=== PATIENT | male | born 1950 | race African-American/Black ===

== ENCOUNTER → 2018-12-20 | Outpatient (CLI) | payer MEDICARE, OTHER ==
[2015-04-21 15:26] VITALS: BP 187/117
[~2018-12-20] MED LIST: DIPH25CA58 PO; FAMO20TA5 PO; METF500T16 PO; METH2TAB PO; NAPR-514 PO; TRAM50TA PO; lisinopril PO
--- NOTE | 2018-12-21 14:24 | KCIC ---
INDICATION: Follow-up of thrombus COMPARISON: February 06, 2016 TECHNIQUE: Grayscale, color and doppler ultrasound images were obtained of the right lower extremity venous vasculature. RIGHT: Dictated superficial femoral vein with one of the superficial femoral veins having thrombus within. There is also thrombus seen within the popliteal vein and peroneal vein. IMPRESSION: * Repeat demonstration of right leg deep vein thrombosis with the overall distribution comparable to prior. Electronically signed by: Gerson Mohan MD (12/21/2018 2:21 PM) [place] [id number]
== END | disposition home or self-care (01) ==
LOC: KCIC US 14:56
PROVIDERS: ATTEND Family Medicine
DX: I82.431 Acute embolism and thrombosis of right popliteal vein (principal); I82.411 Acute embolism and thrombosis of right femoral vein; I82.491 Acute embolism and thrombosis of other specified deep vein of right lower extremity
CPT/HCPCS: 93971

== ENCOUNTER → 2019-02-06 | Outpatient (CLI) | payer OTHER ==
[2015-04-21 15:26] VITALS: BP 187/117
[~2019-02-06] MED LIST changes: +REGADENOSON 0.4 MG/5 ML DISP.SYRIN. IV ONE
--- NOTE | 2019-02-06 12:04 | RAD ---
MR#: [id number] Date of Study: 02/06/2019 Ordering Physician: AKIKO NATH Referring Physician: FAROOQ CONKLIN Tech: RT Vanessa (Monica) (N) APPROVED REPORT Test Type: Pharmacological Stress Nurse/Tech: Velma Ibrahim R.N. Test Indications: chest pain Cardiac History: htn, dm, ex smoker Medications: see ehr Medical History: see ehr Resting ECG: sr Resting Heart Rate: 80 bpm Resting Blood Pressure: 141/86mmHg Pretest Chest Pain: No chest pain Nurse/Tech Notes lungs cta, heart tones regular Consent: The procedure was explained to the patient in lay terms. Informed consent was witnessed. Osvaldo eout was entered into duuin. History and Stress Test performed by HADLEY Hogue Pharm. Details Pharmacologic stress testing was performed using 0.4mg per 5ml of regadenoson given intravenously ove r 7-10 seconds. Stress Symptoms No chest pain or symptoms. POST EXERCISE Reason for Termination: Infusion complete Target HR: No Max HR: 102 bpm Max Blood Pressure: 141/86mmHg Chest Pain: No. Arrhythmia: No. ST Change: No. INTERPRETATION Stress EKG Conclusion: The resting EKG shows a sinus rhythm and slight ST segment changes. The stress EKG shows no significant changes from baseline. No EKG evidence of stressed induced ischemia. Imaging Protocol IMAGE PROTOCOL: Rest Tc-99m/stress Tc-99m 1 day Rest: Stress: Viability: Radiopharm.Tc99m RuiosnwubSv99w Sestamibi Dose9.3mCi 31mCi Duration 15min. 10min. Img Date 02/06/2019 02/06/2019 Inj-Img Hwqp07lza. 60min. Rest Admin Site:IV - Right AntecubitalAdministrator:HADLEY Hogue Stress Admin Site: IV - Right AntecubitalAdministrator: HADLEY Hogue STRESS DATA End Diast. Vol.59.0mlAv. Heart Rate77.0bpm End Syst. Vol.16.0mlCO Index BSA0.0L/min Myocardial Xhxs543.0gEject. Morjznlx66.0% Stress Rates Pk. Fill Rate3.10EDV/secLVtime Pk. Fill 232.34msec Pk. Empty Rate4.17ESV/secLVtime Pk. Wngak741.03msec / Pk. Fill1.12EDV/sec Stress Scores Regional WT1.00Summed WT3.00 Regional WM0.00Summed WM0.00 LV Perfusion The stress scans showed no significant defects. The rest scans showed no significant defects. Nuclear imaging shows no reversible ischemia or infarct. Wall Motion Left ventricular systolic function is normal with an ejection fraction of greater than 70%. LV Perf. Quant 17 Seg. SSS0.00 17 Seg. SRS0.00 17 Seg. SDS0.00 Stress Defect Extent (% LAD)0.00Rest Defect Extent (% LAD)0.00Rev. Defect Extent (% LAD)0.00 Stress Defect Extent (% LCX) 0.00Rest Defect Extent (% LCX)0.00Rev. Defect Extent (% LCX)0.00 Stress Defect Extent (% RCA)0.00Rest Defect Extent (% RCA)0.00Rev. Defect Extent (% RCA)0.00 Stress Defect Extent (% SHANNA)0.00Rest Defect Extent (% SHANNA)0.00Rev. Defect Extent (% SHANNA)0.00 Conclusion 1. No EKG evidence of stressed induced ischemia. 2. Nuclear imaging shows no evidence of reversible ischemia or infarct. 3. Left ventricular systolic function is normal with an ejection fraction of greater than 70%. 4. Low risk Lexiscan nuclear stress test. Signed by : Francisco J Vitale MD Electronically Approved : 02/06/2019 12:04:15
== END | disposition home or self-care (01) ==
LOC: NM 08:28
PROVIDERS: ATTEND Internal Medicine Cardiovascular Disease
DX: R07.9 Chest pain, unspecified (principal); I10 Essential (primary) hypertension; E11.9 Type 2 diabetes mellitus without complications; Z79.01 Long term (current) use of anticoagulants; Z87.891 Personal history of nicotine dependence; Z88.8 Allergy status to other drugs, medicaments and biological substances
CPT/HCPCS: 78452; 93017; A9500; J2785

== ENCOUNTER 2019-02-10 07:49 | Outpatient (CLI) | payer OTHER ==
[~2019-02-10] VITALS: Ht 175.3 cm; Wt 77.1 kg
[2019-02-10] VITALS (11 sets, daily range): BP systolic 100–140; BP diastolic 71–89
[~2019-02-10 07:49] MED LIST changes: -REGADENOSON 0.4 MG/5 ML DISP.SYRIN. IV ONE
[2019-02-10] MEDS ORDERED: ASPI-630 PO (08:11)
[2019-02-10] MEDS ORDERED: RIVA20TA2 PO (08:11)
[2019-02-10] MEDS ORDERED: METO50TA4 PO (08:15)
[2019-02-10] MEDS ORDERED: DILT240C66 PO (08:15)
[2019-02-10] MEDS ORDERED: INSU100V6 SQ (08:15)
[2019-02-10] MEDS ORDERED: HYDR12.575 PO (08:15)
[2019-02-10] MEDS ORDERED: AMLO5TAB10 PO (08:15)
[2019-02-10 08:26] LABS: HEMATOCRIT 40.8 % (39.0-53.0); HEMOGLOBIN 13.7 g/dL (13.0-17.5); RED BLOOD COUNT 4.35 x10^6/uL (4.30-5.70); RED CELL DISTRIBUTION WIDTH 13.7 % (11.5-14.5); WHITE BLOOD COUNT 5.6 x10^3/uL (4.0-11.0)
[2019-02-10 08:29] LABS: CALCIUM 9.3 mg/dL (8.5-10.1); CREATININE 1.1 mg/dL (0.7-1.3); POTASSIUM 3.6 mmol/L (3.5-5.1)
[2019-02-10 08:36] LABS: PROTHROMBIN TIME PATIENT 13.3 SEC (11.7-14.0)
[2019-02-10] MEDS ORDERED: IODIXANOL 320 MG/ML 100 ML VIAL. ONE (10:00)
[2019-02-10] MEDS ORDERED: LIDOCAINE 1% Multi-Dose 20 ML VIAL. ONE (10:00)
[2019-02-10] MEDS ORDERED: MIDAZOLAM HCL/PF 5 MG/5 ML VIAL. ONE (10:02)
[2019-02-10] MEDS ORDERED: fentaNYL PF VIAL 250 MCG/5 ML VIAL ONE (10:02)
[2019-02-10] MEDS ORDERED: HEPARIN for IV BOLUS 10,000 UNIT/10 ML VIAL. ONE (10:03)
[2019-02-10] MEDS ORDERED: fentaNYL PF VIAL 250 MCG/5 ML VIAL IV ONE (10:30)
[2019-02-10] MEDS ORDERED: MIDAZOLAM HCL/PF 5 MG/5 ML VIAL. IV ONE (10:30)
[2019-02-10] MEDS ORDERED: LIDOCAINE 1% Multi-Dose 20 ML VIAL. INJ ONE (10:30)
[2019-02-10] MEDS ORDERED: IODIXANOL 320 MG/ML 100 ML VIAL. IART ONE (10:30)
[2019-02-10] MEDS ORDERED: CONTRAST GIVEN. MC PRN (10:45)
--- NOTE | 2019-02-10 11:22 | CARD ---
MR#: [id number] Date of Study: 02/10/2019 Ordering Physician: AKIKO NATH, Referring Physician: AKIKO NATH Tech: AKASHED GUARDADO APPROVED REPORT Patient StatusOUT-PATIENT Bank Messenger: AKASH GUARDADO Procedure(s) performed: Aortogram with bilateral lower extremity runoff FL TIME: 2.0 MINS DOSE: 39 GY/CM2 CONTRAST: 60 ML MODERATE SEDATION: 48 MINS INDICATION FOR PROCEDURE The indication(s) include : Peripheral artery disease with claudication and abnormal Quantaflo. PROCEDURE NARRATIVE After explaining the risks, benefits and alternative options, informed consent was obtained from mikayla ent. Patient was brought to the cardiac Product Safety Administrator and his left groin was prepped and draped in the usu al fashion. 20 mL of 2% lidocaine was infiltrated into the skin and subcutaneous tissues for local an esthesia. Arterial access was obtained the left common femoral artery and a 5 Zimbabwean sheath was inser leissa. 5 Zimbabwean pigtail catheter was used to perform aortogram with bilateral lower extremity runoff. A 5 Zimbabwean crossover catheter was positioned in the right common iliac artery and selective iliac nell ography was performed. The patient tolerated the procedure well. Hemostasis was achieved using mynx c losure device. There were no immediate complications. FINDINGS 1. No significant stenosis involving the distal descending aorta 2. No significant stenosis involving bilateral common and external iliac arteries 3. No significant stenosis involving bilateral common and superficial femoral arteries 4. No significant stenosis involving bilateral popliteal arteries 5. There is three-vessel runoff below the knee left lower extremity. The right lower treatment he tom wed two vessel runoff. The right posterior tibial artery was not ready well-visualized but appeared t o be occluded proximally. Conclusion No significant peripheral artery stenosis needing intervention Signed by : Akiko Nath, Electronically Approved : 02/10/2019 11:22:24
[2019-02-10] MEDS ORDERED: IV 1/2 NORMAL SALINE 1,000 ML IV SCH (11:42)
--- NOTE | 2019-02-10 11:42 | PDOC ---
MODERATE SEDATION ASSESSMENT RISKS/ALTERNATIVES Risks/Alternatives Risks and alternatives of this type of sedation and procedure discussed with: RISK/ALTERNATIVES: Patient H & P ON CHART H & P H & P on chart and reviewed for co-morbid conditions and appropriate labs. H&P ON CHART: Yes STATUS PREG STATUS ASSESSED: N/A MEDS/ALLERGIES REVIEWED Meds/Allergies Reviewed Medications and Allergies including time and route of recently administered narcotics and sedatives. MEDS/ALLERGIES REVIEWED: Yes ASA RATING ASA RATING: II AIRWAY ASSESSMENT Airway Assessment Airway patency, oral function limitations, presence of caps, crowns, dentures, partials, and ability to extend neck assessed. AIRWAY ASSESSMENT: Yes MALLAMPATI SCORE MALLAMPATI SCORE: II PRE-SEDATION ASSESSMENT PRE-SEDATION ASSESSMENT: Yes AKIKO NATH MD Feb 10, 2019 11:42
--- NOTE | 2019-02-10 14:57 | NUR ---
Discharge Note: [facility] Discharge instructions and discharge home medications reviewed with Patient and Spouse and a copy given. All questions have been answered and understanding verbalized. Patient ate breakfast and lunch with no issues. The following instructions and handouts were given: Angigraphy, Groin site care, moderate sedation and diabetic neuropathy. Discontinued lines and drains: right forearm, dressing clean dry intact. Patient discharged to home with and sister in law via wheelchair to private vehicle.
== END 2019-02-10 14:45 | disposition home or self-care (01) ==
LOC: CCL 07:49
PROVIDERS: ATTEND Internal Medicine Cardiovascular Disease
DX: I70.213 Atherosclerosis of native arteries of extremities with intermittent claudication, bilateral legs (principal); Z79.899 Other long term (current) drug therapy
CPT/HCPCS: 36245; 36415; 75716; 80048; 85027; 85610; C1713; C1769; C1892; J1644; J2250; J3010; Q9967; 75630; 99152; 99153; G0269

== ENCOUNTER → 2019-03-21 | Outpatient (CLI) | payer OTHER ==
[2019-02-10 13:15] VITALS: BP 121/85
[~2019-03-21] MED LIST changes: +AMLO5TAB10 PO; +ASPI-630 PO; +DILT240C66 PO; +HYDR12.575 PO; +INSU100V6 SQ; +METO50TA4 PO; +RIVA20TA2 PO
--- NOTE | 2019-03-21 10:53 | RAD ---
MR#: [id number] Date of Study: 03/21/2019 Ordering Physician: AKIKO NATH, Referring Physician: AKIKO ANTH, Tech: Nicola Lerner MBA, RDMS, RVT, RDCS, RTR APPROVED REPORT Patient Location : OUT-PATIENT Indications VENOUS INSUFFICIENCY Greater Saphenous Veins (GSV) Significant venous relux noted in the RIGHT GSV at the following levels : Superficial Femoral Junctio n, Proximal Thigh, Mid Thigh, Distal Thigh, Proximal Calf, Mid Calf, Distal Calf Significant venous relux noted in the LEFT GSV at the following levels : Superficial Femoral Junction , Proximal Thigh, Mid Thigh, Distal Thigh, Proximal Calf, Mid Calf, Distal Calf Lesser Saphenous Veins (LSV) Significant venous reflux is noted in the Bilateral LSV. Findings Grayscale images of the bilateral saphenofemoral junctions are grossly unremarkable. The right great saphenous vein measures a maximum of 3.7 mm and has a reflux time of 2.8 seconds. The left great saphenous vein measures 6 mm and has a maximum reflux time of 3.5 seconds. Bilateral lesser saphenous veins do not show any evidence of reflux. Critical Notification Critical Value: No <Conclusion> 1. Significant reflux as noted above in the bilateral greater saphenous veins Signed by : William Dumont, Electronically Approved : 03/21/2019 10:52:42
== END | disposition home or self-care (01) ==
LOC: US 09:54
PROVIDERS: ATTEND Internal Medicine Cardiovascular Disease
DX: I87.2 Venous insufficiency (chronic) (peripheral) (principal)
CPT/HCPCS: 93970

== ENCOUNTER → 2019-04-14 | Outpatient (CLI) | payer OTHER ==
[2019-02-10 13:15] VITALS: BP 121/85
--- NOTE | 2019-04-14 10:41 | CARD ---
MR#: [id number] Date of Study: 04/14/2019 Ordering Physician: AKIKO NATH, Referring Physician: AKIKO NATH Tech: Randall Gomez [facility] APPROVED REPORT EXAM: Two-dimensional and M-mode echocardiogram with Doppler and color Doppler. Other Information Quality : GoodHR: 76bpm Rhythm : NSR INDICATION Hypertension/HCVD Chest Pain 2D DIMENSIONS Left Atrium(2D)3.2 (1.6-4.0cm)IVSd1.2 (0.7-1.1cm) Aortic Root(2D)3.1 (2.0-3.7cm)LVDd3.8 (3.9-5.9cm) PWd1.2 (0.7-1.1cm)LVDs2.8 (2.5-4.0cm) FS (%) 26.7 %SV33.1 ml LVEF(%)52.9 (>50%) Mitral Valve MV E Jaunqbfu10.1cm/sMV DECEL [id number] MV A Umyvvkvk59.0cm/sE/A Ratio0.8 MV A Ahvayvwj238uy Pulmonary Valve PV Peak Xsrfgbly44.1cm/s Tricuspid Valve TR P. Zuhxqfzz557co/sRAP [id number] TR Peak Gr.01daEkYQAT70thEr Pulmonary Vein S1 Kxdqzpby76.6cm/sD2 Fhludczw59.0cm/s PVa orfdplgs666odfc LEFT VENTRICLE The left ventricle is normal size. There is borderline to mild concentric left ventricular hypertroph y. The left ventricular systolic function is normal and the ejection fraction is within normal range. The Ejection Fraction is 60-65%. There is normal LV segmental wall motion. Transmitral Doppler flow pattern is Grade I-abnormal relaxation pattern. RIGHT VENTRICLE The right ventricle is normal size. There is normal right ventricular wall thickness. The right ventr icular systolic function is normal. ATRIA The left atrium size is normal. The right atrium size is normal. The interatrial septum is intact wit h no evidence for an atrial septal defect or patent foramen ovale as noted on 2-D or Doppler imaging. AORTIC VALVE The aortic valve is normal in structure and function. No aortic regurgitation is present. There is no aortic valvular stenosis. There is no aortic valvular vegetation. MITRAL VALVE The mitral valve is normal in structure and function. There is no evidence of mitral valve prolapse. There is no mitral valve stenosis. Doppler and Color-flow revealed mild mitral regurgitation. TRICUSPID VALVE The tricuspid valve is normal in structure and function. Doppler and Color Flow revealed mild tricusp id regurgitation with PAP of 33 mmHg. There is no tricuspid valve prolapse or vegetation. There is no tricuspid valve stenosis. PULMONIC VALVE Doppler and Color Flow revealed mild pulmonic valvular regurgitation. There is no pulmonic valvular s tenosis. GREAT VESSELS The aortic root is normal in size. The ascending aorta is normal in size. The IVC is normal in size a nd collapses >50% with inspiration. PERICARDIAL EFFUSION There is no pleural effusion. The pericardium appears normal. Critical Notification Critical Value: No <Conclusion> The left ventricular systolic function is normal and the ejection fraction is within normal range. Th e Ejection Fraction is 60-65%. There is normal LV segmental wall motion. Signed by : William Dumont, Electronically Approved : 04/14/2019 10:40:22
== END | disposition home or self-care (01) ==
LOC: ECHO 08:35
PROVIDERS: ATTEND Internal Medicine Cardiovascular Disease
DX: I08.1 Rheumatic disorders of both mitral and tricuspid valves (principal); I11.9 Hypertensive heart disease without heart failure
CPT/HCPCS: 93306

== ENCOUNTER → 2021-05-21 | Day surgery (SDC) | payer BC, OTHER ==
[~2021-05-21] VITALS: Ht 175.3 cm; Wt 84.0 kg
[~2021-05-21] MED LIST changes: +AMLO-186 PO; -AMLO5TAB10 PO; +CITA10TA5 PO; +CRESTOR5 MG PO; +DILT300T7 PO; +HYDROmorphone 2 MG/ML INJ. IVP PRN; +IV RINGERS,LACTATED 1000ML 1,000 ML IV SCH; +MORPHINE SULFATE 2 MG/ML INJ. IVP PRN; +PANT20TA2 PO; +PROCHLORPERAZINE 10 MG/2 ML VIAL. IVP PRN; +PROPOFOL 10 MG/ML (20ML) VIAL. IV ONE; +WARF-31 PO; +fentaNYL PF VIAL 100 MCG/2 ML VIAL IVP PRN
[2021-05-21 07:08] VITALS: BP 147/98
--- NOTE | 2021-05-21 07:42 | PDOC2 ---
CONSULT Date of Consult Date of Consult DATE: 05/21/21 TIME: 07:37 Reason for Consult Reason for Consult: CRC screening Identification/Chief Complaint Chief Complaint 70 yo Male seen in consultation for colorectal cancer screening. He has daily bowel movements without constipation or diarrhea. No melena and/or hematochezia is present. Weight and appetite are stable. Prior colonoscopy a decade ago did reveal colon polyps. He otherwise is without additional complaints. Past Medical History Cardiovascular: HTN GI: GERD Endocrine: Diabetes Past Surgical History Past Surgical History: Other (Leg stent/revascularization) Family History Family History: Alcohol Abuse, Diabetes, Heart Disease, Hypertension Social History Quit Current Medications Current Medications Current Medications Fentanyl Citrate (Fentanyl 2ml Vial) 25 mcg PRN Q5MIN PRN IVP MILD PAIN 1-3; Start 05/21/21 at 06:00; Stop 05/21/21 at 20:00 Fentanyl Citrate (Fentanyl 2ml Vial) 50 mcg PRN Q5MIN PRN IVP MODERATE PAIN 4- 6; Start 05/21/21 at 06:00; Stop 05/21/21 at 20:00 Morphine Sulfate (Morphine Sulfate) 1 mg PRN Q10MIN PRN IVP SEVERE PAIN 7-10; Start 05/21/21 at 06:00; Stop 05/21/21 at 20:00 Ringer's Solution 1,000 ml @ 30 mls/hr Q24H IV Last administered on 05/21/21at 07:16; Start 05/21/21 at 06:00; Stop 05/21/21 at 17:59 Hydromorphone HCl (Dilaudid) 0.5 mg PRN Q10MIN PRN IVP SEVERE PAIN 7-10, 2nd CHOICE; Start 05/21/21 at 06:00; Stop 05/21/21 at 20:00 Prochlorperazine Edisylate (Compazine) 5 mg PACU PRN PRN IVP NAUSEA, MRX1; Start 05/21/21 at 06:00; Stop 05/21/21 at 20:00 Fentanyl Citrate (Fentanyl 2ml Vial) 25 mcg PRN Q5MIN PRN IVP MILD PAIN 1-3; Start 05/21/21 at 06:00; Stop 05/22/21 at 05:59; Status UNV Fentanyl Citrate (Fentanyl 2ml Vial) 50 mcg PRN Q5MIN PRN IVP MODERATE PAIN 4- 6; Start 05/21/21 at 06:00; Stop 05/22/21 at 05:59; Status UNV Morphine Sulfate (Morphine Sulfate) 1 mg PRN Q10MIN PRN IVP SEVERE PAIN 7-10; Start 05/21/21 at 06:00; Stop 05/22/21 at 05:59; Status UNV Ringer's Solution 1,000 ml @ 30 mls/hr Q24H IV ; Start 05/21/21 at 06:00; Stop 05/21/21 at 17:59; Status UNV Hydromorphone HCl (Dilaudid) 0.5 mg PRN Q10MIN PRN IVP SEVERE PAIN 7-10, 2nd CHOICE; Start 05/21/21 at 06:00; Stop 05/22/21 at 05:59; Status UNV Prochlorperazine Edisylate (Compazine) 5 mg PACU PRN PRN IVP NAUSEA, MRX1; Start 05/21/21 at 06:00; Stop 05/22/21 at 05:59; Status UNV Propofol (Diprivan) 200 mg STK-MED ONCE IV ; Start 05/21/21 at 06:28; Stop 05/21/21 at 06:29; Status DC Active Scripts Active Reported Protonix (Pantoprazole Sodium) 20 Mg Tablet.dr 40 Mg PO DAILY Crestor (Rosuvastatin Calcium) 5 Mg Tablet 10 Mg PO HS Warfarin Sodium 5 Mg Tablet 5 Mg PO DAILY Diltiazem 24Hr ER (LA) (Diltiazem HCl) 300 Mg Tab.er.24h 300 Mg PO DAILY Citalopram Hbr (Citalopram Hydrobromide) 10 Mg Tablet 10 Mg PO DAILY Humalog (Insulin Lispro) 100 Unit/1 Ml Vial 100 Unit SQ BID Toprol XL (Metoprolol Succinate) 50 Mg Tab.er.24h 50 Mg PO DAILY Hydrochlorothiazide Capsule (Hydrochlorothiazide) 12.5 Mg Capsule 25 Mg PO DAILY Amlodipine Besylate 5 Mg Tablet 5 Mg PO DAILY Cartia Xt (Diltiazem Hcl) 240 Mg Cap.er.24h 1 Cap PO DAILY 30 Days Metformin Hcl 500 Mg Tablet 2 Tab PO BID Naproxen 500 Mg Tablet 1 Tab PO BID Allergies Allergies: Coded Allergies: lisinopril (Verified Allergy, Severe, ANGIOEDEMA, 05/21/21) ROS Respiratory: YES: Cough Physical Exam General: Alert, Oriented X3, Cooperative Lungs: Clear to auscultation Heart: Normal S1, Normal S2 Abdomen: Normal bowel sounds, Soft, No tenderness Vitals VITALS Vital Signs Date Time Temp Pulse Resp B/P (MAP) Pulse Ox O2 Delivery O2 Flow Rate FiO2 05/21/21 07:08 97.6 99 18 99 97.6 Assessment/Plan Assessment/Plan CRC screening- with remote history of colon polyps, surveillance colonoscopy to further assess. R/B discussed with patient who is willing to proceed. JOSE FERGUSON MD May 21, 2021 07:42
[2021-05-21 08:20] VITALS: BP 134/86
== END | disposition home or self-care (01) ==
LOC: ENDOS 06:44
PROVIDERS: ATTEND Internal Medicine Gastroenterology
DX: Z12.11 Encounter for screening for malignant neoplasm of colon (principal); K64.0 First degree hemorrhoids; K57.30 Diverticulosis of large intestine without perforation or abscess without bleeding; K63.89 Other specified diseases of intestine; I10 Essential (primary) hypertension; E11.9 Type 2 diabetes mellitus without complications; K21.9 Gastro-esophageal reflux disease without esophagitis; Z86.010 Personal history of colon polyps; F41.9 Anxiety disorder, unspecified; Z79.84 Long term (current) use of oral hypoglycemic drugs; Z79.899 Other long term (current) drug therapy; Z98.890 Other specified postprocedural states; Z72.89 Other problems related to lifestyle; Z88.8 Allergy status to other drugs, medicaments and biological substances
CPT/HCPCS: G0105; J2704; 45378